=== PATIENT | female | born 1955 | race Caucasian/White ===

== ENCOUNTER 2019-06-03 20:24 | Inpatient (IN) | payer MEDICARE ==
[~2019-06-03] VITALS: Ht 165.1 cm; Wt 66.1 kg
--- NOTE | ~2019-06-03 | EC ---
PATIENT:ZURI PAYNE DATE OF SERVICE: 06/03/19 SEX: F MEDICAL RECORD: [id number] DATE OF : 55 LOCATION:D.M2 D.211 AGE OF PATIENT: 64 ADMISSION DATE: 06/03/19 REFERRING PHYSICIAN: INTERPRETING PHYSICIAN: JOSELIN MENDOZA MD ECHOCARDIOGRAM REPORT ECHO CHARGES 4 ECHO COMPLETE Date: 06/05/19 CLINICAL DIAGNOSIS: [place], ECHOCARDIOGRAPHIC MEASUREMENTS (adult normal given) AC root (d.<3.7cm) 3.0 cm LV Septum d (<1.2 cm> 1.0 cm Valve Excursion 1.2 cm LV Septum (systole) 1.5 cm Left Atria (s.<4.0cm> 3.7 cm LVPW d(<1.2cm) 1.1 cm RV (d.<2.3cm) 2.6 cm LVPW (sytole) 1.2 cm LV diastole(<5.6CM) 4.8 cm MV E-F(>70mm/sec) cm LV systole 3.9 cm LVOT Diameter 1.9 cm MV exc.(>10mm) cm Est.ejection fraction (50-75%) % DOPPLER: LVIT cm/sec A 93 cm/sec E 82 cm/sec LA cm/sec RVSP 34.3 mmHg LVOT 106 cm/sec AOP1/2T m/s Asc. Ao 133 cm/sec RVOT 67 cm/sec RA cm/sec PA 90 cm/sec AV Gradient Peak 7.0 mmHg AV Mean 4.0 mmHg AV Area 2.0 cm MV Gradient Peak 5.5 mmHg MV Mean 3.4 mmHg MV Area cm COMMENTS: Hog Grader: Lilly [facility] [place] [employer] Supervisor: 1 Dr. Mendoza TAPE# PACS Pericardial Effusion N DATE OF SERVICE: ECHOCARDIOGRAM FINDINGS: 1. Left ventricular chamber size is within normal limits. Left ventricular systolic function is normal. Overall ejection fraction estimated at 55% to 60%. 2. Left atrium, right atrium, and right ventricle chamber sizes are within normal limits. 3. Valvular structures have normal structure and motion. ECHOCARDIOGRAM REPORT [id number] ZURI PAYNE 4. Doppler interrogation reveals mild mitral regurgitation, mild tricuspid regurgitation, no other valvular insufficiency or stenosis. Pulmonary systolic pressure estimated at 34 mmHg. 5. No evidence of pericardial effusion or left ventricular thrombus. TRANSINT:[id number] Voice Confirmation ID: [id number] DOCUMENT ID: [id number] JOSELIN MENDOZA MD CC: [id number] DICTATION DATE: 06/06/19 1009 BOOT LACE CUTTER MACHINE: 06/06/19 1244 ADM IN [place] [id number] [place] [id number]
--- NOTE | ~2019-06-03 | CN ---
PATIENT NAME:ZURI FLORIAN MEDICAL RECORD: [id number] : 55 LOCATION:D.MS [place]4 ADMIT DATE: 06/03/19 ACCOUNT: [id number] CONSULTING PHYSICIAN: JOSELIN HAMMER MD REFERRING PHYSICIAN: EDUARD DAVILA MD DATE OF CONSULTATION: 06/04/2019 CARDIOLOGY CONSULTATION DIAGNOSES: 1. Angina. 2. Abnormal ECG. 3. Coronary artery disease. 4. Status post coronary artery bypass graft surgery. 5. Hypertension. 6. Hyperlipidemia. 7. Paroxysmal atrial fibrillation. 8. Shortness of breath, dyspnea on exertion, HISTORY OF PRESENT ILLNESS: Mrs. Florian presents with chest pain, shortness of breath and dyspnea on exertion. She has a history of coronary artery disease, coronary artery bypass graft surgery in 2005. Her EKG has ST depression in the lateral leads consistent with ongoing ischemia. She has a history of atrial fibrillation, but has not had any atrial fibrillation this admission. She is on propafenone as well as diltiazem, metoprolol. Her episodes of chest pain have progressed. Her shortness of breath and chest pain is at rest now. PHYSICAL EXAMINATION: CONSTITUTIONAL/GENERAL APPEARANCE: Well nourished, well developed, appears stated age. EYES: Lids and conjunctivae noninjected. No discharge. No pallor. ENT: Lips within normal limit. No cyanosis. No pallor. NECK: Carotid arteries, bilateral normal upstroke. No bruits. No thrills. No jugular venous pressure or distention. CERVICAL LYMPH NODES: Nontender. Nonenlarged. THYROID: Not enlarged. No nodules. CARDIOVASCULAR: Precordial exam, nondisplaced. No heaves or pericardial thrills. Rate and rhythm, regular. Heart sounds, normal S1, normal S2. No S3, no gallop, no rub. Systolic murmur, not heard. Diastolic murmur, not heard. RESPIRATORY: Respiratory effort, unlabored. Normal curvature. No thoracic deformity. No chest wall tenderness. Percussion, resonant. Auscultation, clear. No wheezes, no rales, no rhonchi. ABDOMEN: Soft, nondistended, nontender. No abdominal pain, no vomiting and normal appetite. MUSCULOSKELETAL: No joint tenderness, normal gait, normal tone. SKIN: Warm and dry. OVERALL IMPRESSION: Increasing unstable anginal symptomatology with episodes of rest pain, abnormal ECG and a past history of coronary artery disease with coronary artery bypass graft surgery 13 years ago, most likely she has recurrent hemodynamically significant coronary artery disease. We will proceed with coronary angiography. She does have an IODINE ALLERGY. We will premedicate for the IODINE ALLERGY. Proceed with coronary angiography in the a.m. TRANSINT:[id number] Voice Confirmation ID: [id number] DOCUMENT ID: [id number] CONSULT REPORT [id number] ZURI FLORIAN JEFFREY MD CC: [id number] DICTATION DATE: 06/04/19 1313 PILLAR MAN: 06/04/19 1359 ADM IN [facility] [address] [place] [id number]
--- NOTE | ~2019-06-03 | OP ---
PATIENT NAME: ZURI PAYNE MEDICAL RECORD: [id number] :55 LOCATION:D.M2 D.2118 ADMISSION DATE:06/03/19 SURGEON: JOSELIN HAMMER MD DATE OF OPERATION: 06/05/2019 PROCEDURES: 1. PTCA and stent to the RCA. 2. PTCA and stent to the LAD. 3. Left heart catheterization. 4. Selective coronary angiography. 5. BLAS angiography. 6. Vein graft angiography. 7. Left ventriculogram. INDICATIONS: Unstable angina and coronary artery disease. PROCEDURE IN DETAIL: After informed consent was obtained and after a detailed description of risks, benefits as well as alternative therapies, the patient elected to proceed with angiogram and angioplasty. The right femoral area was prepped and draped in normal sterile fashion. Right femoral artery was cannulated via modified Seldinger technique with placement of #6-Icelandic sheath. All catheters exchanged through this sheath. FINDINGS: The left ventriculogram was performed in standard 30-degree STEWARD view reveals preserved ejection fraction at 50%. SELECTIVE CORONARY ANGIOGRAPHY: 1. Left main is with no significant angiographic disease. 2. Left anterior descending has 95% stenosis in the mid vessel. 3. Left circumflex is closed in the mid vessel, has a chronic total occlusion. 4. The right coronary has a long area of 80% and 90% stenosis throughout the mid vessel. 5. BLAS to the LAD is closed. 6. Vein grafts are closed. PTCA AND STENT OF THE LAD: The stent used was a 2.5 x 18 mm Bentley. Result was 0% residual stenosis. PTCA AND STENT OF THE RCA: Stents used were 2.5 x 38 and 2.5 x 26, both Bentley stents. Result was 0% residual stenosis. OVERALL IMPRESSION: Successful PTCA and stent of the LAD and RCA, both going from 90% to 95% initial stenosis to 0% residual. TRANSINT:[id number] Voice Confirmation ID: [id number] DOCUMENT ID: [id number] OPERATIVE REPORT [id number] ZURI PAYNE JOSELIN ALVA MD CC: [id number] DICTATION DATE: 06/05/19 1633 COMPOSITE SCIENCE TEACHER: 06/05/19 2342 ADM IN [facility] [address] [place] [address]
--- NOTE | ~2019-06-03 | HEMODYNAMI ---
PATIENT:ZURI PAYNE MEDICAL RECORD: [id number] : 55 LOCATION:D.MS [facility]4 ADMISSION DATE: 06/03/19 Generatedon:06/05/201916:26 Patient name: ZURI PAYNE Patient #: [id number] SSN: : 1955 Date of study: 06/05/2019 Page: Of Hemodynamic Procedure Report Patient Data Patient Demographics Procedure consent was obtained First Name: ZURI Gender: Female Last Name: ELMER : 1955 [facility] Initial: ANGUS Age: 64 year(s) Patient #: [id number] Race: Unknown Additional ID: [id number] Contact details [address]: [address] [place] [address] State: [place] City: [place] Zip code: [address] Past Medical History Allergies Allergen Reaction Date Comments Reported Other allergy 06/05/2019 PCN, iodine Admission Admission Data Admission Date: 06/03/2019 Admission Time: 22:28 Room #: D.2204 Height (in.): 65 BSA: 1.74 (m2) Height (cm.): 165.1 BMI: 24.46 (kg/m2) Weight (lbs.): 147 Weight (kg.): 66.68 Lab Results Lab Result Date: 06/05/2019 Lab Result Time: 0:00 Biochemistry Name Units Result Min Max BUN mg/dl 7 --(*---)-- 7 18 Creatinine mg/dl 0.8 --(-*--)-- 0.6 1.3 eGFR ml/min 76.21409 *-(----)-- 90 120 NONAFRICAN CBC Name Units Result Min Max Hematocrit % 34.5 *-(----)-- 42 54 Hemoglobin g/dl 11.1 *-(----)-- 13.5 17.5 Procedure Procedure Types Cath Procedure Diagnostic Procedure LHC LHC w/Coronaries w/Grafts Sedation Charges Moderate Sedation up to 15 minutes PCI Procedure Coronary Stent Coronary Stent Initial Coronary Stent Initial x2 Procedure Description Procedure Date Procedure Date: 06/05/2019 Procedure Start Time: 16:01 Procedure End Time: 16:24 Procedure Staff Name Function Francisco Mendoza MD Performing Physician Daphne Hall RT Scrub Rose Mary Cherry RT Monitor Loren Rousseau RN Nurse Procedure Data Cath Procedure Fluoroscopy Diagnostic fluoroscopy Total fluoroscopy Time: 4.8 time: 4.8 min min Diagnostic fluoroscopy Total fluoroscopy dose: 275 dose: 275 mGy mGy Contrast Material Contrast Material Type Amount (ml) Isovue 370 134 Entry Location Entry Primary Successful Side Size Upsize Upsize Entry Closure Succes sful Closure Location (Fr) 1 (Fr) 2 (Fr) Remarks Device Remarks Femoral Right 5 Fr 6 Fr Exoseal artery Short Estimated blood loss: 10 ml Diagnostic catheters Device Type Used For End Catheter Placement MULTIPACK Pigtail 5 Fr Procedure catheter MULTIPACK JL 4.0 5Fr Procedure catheter MULTIPACK 3DRC 5Fr Procedure catheter Procedure Complications No complications Procedure Medications Medication Administration Route Dosage 0.9% NaCl I.V. 100 ml/hr Oxygen etCO2 Nasal cannula 2 l/min Lidocaine 2% added to field 20 Heparin Flush Bag added to field 2 bags (1000units/500ml NS) Versed I.V. 2 mg Fentanyl I.V. 100 mcg Heparin Bolus I.V. 4000 units Integrilin (Bolus I.V. 6.2 ml 2mg/ml) Integrilin (Bolus wasted 3.8 ml 2mg/ml) Plavix P.O. 600 mg Hemodynamics Rest BSA: 1.74 (m2) HGB: 11.1 (g/dl) O2 Consumption: Estimated: 170.35 (ml/min) O2 Co nsumption indexed: Estimated:97.9 (ml/min/m) Heart Rate: 81 (bpm) Snapshots Pre Cath Intra NCS Post Cath Vital Signs Time Heart Resp SPO2 etCO2 NIBP (mmHg) Rhythm Pain Sedation Rate (ipm) (%) (mmHg) Status Level (bpm) 15:56:48 73 21 96 24.7 170/95(139) NSR 0 (11) 10(A) , No pain 16:00:58 80 20 98 25.4 165/92(131) NSR 0 (11) 10(A) , No pain 16:05:08 95 17 96 26.2 165/98(132) NSR 0 (11) 9(A) , No pain 16:09:16 81 18 98 26.2 165/96(133) NSR 0 (11) 9(A) , No pain 16:13:30 80 18 96 27 159/85(128) NSR 0 (11) 9(A) , No pain 16:17:39 81 19 98 26.9 162/95(134) NSR 0 (11) 10(A) , No pain 16:22:39 82 17 95 12 Measuring NSR 0 (11) 10(A) , No pain 16:22:41 82 17 95 22.5 183/113(154) NSR 0 (11) 10(A) , No pain Medications Time Medication Route Dose Verified Delivered Reason Notes Effectiveness by by 15:55:56 0.9% NaCl I.V. 100 Francisco Loren used for ml/hr Reji Rousseau pickup driver 15:56:03 Oxygen etCO2 2 Francisco Loren used for Nasal l/min Reji Rousseau procedure cannula RN 15:56:09 Lidocaine 2% added 20ml Francisco Singh for local to vial Reji Mendoza MD anesthetic field 15:56:13 Heparin Flush added 2 Francisco Francisco used for Bag to bags Reji Mendoza MD procedure (1000units/500ml field NS) 15:58:12 Versed I.V. 2 mg Francisco Loren for sedation Reji Rousseau RN 15:58:34 Fentanyl I.V. 100 Francisco Loren for sedation mcg Reji Rousseau RN 16:09:13 Heparin Bolus I.V. 4000 Francisco Paganyla for verif ied units Reji Rousseau anticoagulation with Dr. SABRINA Mendoza 16:09:24 Integrilin I.V. 6.2 Francisco Loren for (Bolus 2mg/ml) ml Reji Rousseau antiplatelet RN therapy 16:09:41 Integrilin wasted 3.8 Francisco Loren for (Bolus 2mg/ml) ml Reji Rousseau antiplatelet RN therapy 16:09:51 Plavix P.O. 600 Francisco Loren for mg Reji Rousseau antiplatelet RN therapy Procedure Log Time Note 14:48:16 Patient allergic to Other allergyPCN, iodine 15:19:46 Procedure Status Urgent Heart Cath (IP). 15:19:47 Time tracking: Regular hours (M-F 7:00 - 5:00) 15:19:50 Plan of Care:Hemodynamics will remain stable., Cardiac rhythm will remain stable., Comfort level will be maintained., Respiratory function will remain adequate., Patient/ family verbilizes understanding of procedure., Procedure tolerated without complication., Recovers from procedure without complications.. 15:19:52 Rose Mary Cherry RT(R) sent for patient. Start room use. 15:19:54 Signed procedure consent form obtained from patient. 15:24:26 H&P Date Dictated: 06/05/2019 New H&P dictated by physician.. 15:44:10 Patient received from Med/Surg to CCL 3 Alert and oriented. Tansferred to table in Supine position. 15:44:11 Warm blankets applied, and toby hugger turned on for patient comfort. 15:44:12 Correct patient and procedure confirmed by team. 15:44:13 ECG and BP/O2 sat monitors applied to patient. 15:44:16 Pre-procedure instructions explained to patient. 15:44:17 Pre-op teaching completed and patient verbalized understanding. 15:44:19 Family in waiting room. 15:44:22 Patient NPO since Breakfast. 15:44:24 Is the patient allergic to Iodine/contrast media? No. 15:44:29 Was the patient premedicated? Yes 15:44:31 Is patient on blood thinner?Yes 15:44:35 ACC The patient was administered the following blood thiners within the last 24 hours: Eliquis 15:44:38 Patient diabetic? No. 15:44:40 Patient not . Patient is over age 55. 15:44:41 ----Pre-sedation anethsthesia assessment.---- 15:44:46 Previous problem with sedation/anesthesia? No ? 15:44:47 Snore? Yes 15:44:51 Sleep apnea? No 15:44:52 Deviated septum? No 15:44:53 Opens mouth fully? Yes 15:44:54 Sticks out tongue? Yes 15:44:58 Airway obstruction? Yes copd 15:45:01 Dentures? No ? 15:45:23 Alarms reviewed by R. N. 15:45:24 Sharps counted by scrub and verified by R.N. 15:45:28 Lab results completed and on chart. 15:45:33 Stress Test: no; N/A ? 15:46:17 Patient Height : 65 inches 15:46:27 Patient Weight : 147 lbs 15:55:47 Vital chart was started 15:55:56 0.9% NaCl 100 ml/hr I.V. was administered by Loren Rousseau RN; used for procedure; Verbal order read back and verified. 15:56:03 Oxygen 2 l/min etCO2 Nasal cannula was administered by Loren Rousseau RN; used for procedure; Verbal order read back and verified. 15:56:05 Risk of Mortality: 0.1 15:56:08 Risk of blood transfusion: 1.8 15:56:09 Lidocaine 2% 20ml vial added to field was administered by Francisco Mendoza MD; for local anesthetic; Verbal order read back and verified. 15:56:10 Risk of GONZALO: 0.4 15:56:13 Heparin Flush Bag (1000units/500ml NS) 2 bags added to field was administered by Francisco Mendoza MD; used for procedure; Verbal order read back and verified. 15:56:14 Right groin area was prepped with chlora-prep and draped in sterile fashion 15:56:25 IV patent on arrival in right forearm with 0.9% NaCl at [facility]. 15:56:54 Lab Result : BUN 7 mg/dl 15:56:54 Lab Result : Creatinine 0.8 mg/dl 15:56:54 Lab Result : eGFR NONAFRICAN 76.92438 ml/min 15:56:54 Lab Result : Hemoglobin 11.1 g/dl 15:56:54 Lab Result : Hematocrit 34.5 % 15:56:59 Pre procedure: right dorsailis pedis pulse 2+ Normal; easily identifiable; not easily obliterated 15:57:02 Patient pain scale 0/10 ?. 15:57:12 Baseline sample Acquired. 15:57:13 Full Disclosure recording started 15:57:21 Rhythm: sinus rhythm 15:57:27 Use device set Femoral Dx 15:57:28 ACIST Syringe (50410) opened to sterile field. 15:57:29 Bag Decanter () opened to sterile field. 15:57:30 Medline Cath Pack ([id number]) opened to sterile field. 15:57:31 ACIST Hand Control (98113) opened to sterile field. 15:57:32 ACIST Manifold (61464) opened to sterile field. 15:57:34 DIAGNOSTIC Multipack 5Fr catheter set ([id number]) opened to sterile field. 15:57:36 EMERALD Guide Wire (802-276) opened to sterile field. 15:57:37 SHEATH 5FR [place] (HLN378) opened to sterile field. 15:57:54 --------ALL STOP TIME OUT------ 15:57:55 Final Timeout: patient, procedure, and site verified with staff and physician. All members of the team are in agreement. 15:57:58 Right groin site verified by team. 15:58:02 Fire Safety Assessment: A--An alcohol-based skin anteseptic being used preoperatively., C--Open oxygen or nitrous oxide is being used., D--An ESU, laser, or fiber-optic light is being used. 15:58:05 Physical assessment completed. ASA score P 2 - A patient with mild systemic disease as per Francisco Mendoza MD. 15:58:08 2) 60-89 Mildly reduced kidney function, and other findings (as for stage 1) point to kidney disease. 15:58:12 Versed 2 mg I.V. was administered by Loren Rousseau RN; for sedation; Verbal order read back and verified. 15:58:13 Maximum allowable contrast dose (3.7 X eGFR X 0.75)210 ml. 15:58:17 Sedation plan: IV Moderate Sedation Medication:Versed, Fentanyl 15:58:34 Fentanyl 100 mcg I.V. was administered by Loren Rousseau RN; for sedation; Verbal order read back and verified. 16:01:13 Procedure started. 16:01:41 Local anesthetic to right femoral artery with Lidocaine 2% by Francisco Mendoza MD.INITIAL ACCESS ONLY 16:02:19 A 5 Fr sheath was inserted into the Right Femoral artery 16:02:26 A MULTIPACK Pigtail 5 Fr catheter was advanced over the wire and used for Procedure. 16:03:22 Injector settings: Ml/sec: 10, Volume: 20, 16:03:25 LV gram done using STEWARD 16:03:45 EF : 50 % 16:03:46 Catheter removed. 16:04:29 A MULTIPACK JL 4.0 5Fr catheter was advanced over the wire and used for Procedure. 16:04:31 LCA angiography performed. 16:05:19 Catheter removed. 16:05:24 A MULTIPACK 3DRC 5Fr catheter was advanced over the wire and used for Procedure. 16:06:29 BLAS to LAD angiography performed. 16:07:10 RCA angiography performed. 16:07:51 Catheter removed. 16:07:59 Proceeding to intervention. 16:08:13 Sheath upsized to a 6 Fr Short. 16:08:17 SHEATH 6FR [place] (NXB119) opened to sterile field. 16:08:53 GUIDE 6FR XBLAD 4.0 catheter ([id number]) opened to sterile field. 16:09:08 6 Fr xblad 4 guide catheter was inserted over the wire 16::13 Heparin Bolus 4000 units I.V. was administered by Loren Rousseau RN; for anticoagulation; verified with Dr. Mendoza Verbal order read back and verified. 16:09:24 Integrilin (Bolus 2mg/ml) 6.2 ml I.V. was administered by Loren Rousseau RN; for antiplatelet therapy; Verbal order read back and verified. 16:09:41 Integrilin (Bolus 2mg/ml) 3.8 ml wasted was administered by Loren Rousseau RN; for antiplatelet therapy; Verbal order read back and verified. 16:09:51 Plavix 600 mg P.O. was administered by Loren Rousseau RN; for antiplatelet therapy; Verbal order read back and verified. 16:10:25 INFLATOR Merit BasixCompak (ZB5035) opened to sterile field. 16:10:38 CHOICE PT Extra Support 182cm wire ([id number]) opened to sterile field. 16:10:55 choice es 182 wire advanced. 16:12:08 Wire advanced across lesion. 16:12:10 Pre PCI Site: [place] mLAD has 90% stenosis. 16:12:53 Place stent Inflation Number: 1 A JIMENA RX 2.5 x 18 stent ([id number]) was prepped and advanced across the Mid LAD . The stent was deployed at 21 COY for 0:00 (min:sec) . 16:12:57 Inflation number: 2 The stent balloon was then re-inflated across the Mid LAD to 23 COY for 0:00 (min:sec) . 16:13:02 Stent catheter was removed intact over wire. 16:13:05 Guide catheter removed. 16:13:06 Wire removed. 16:13:12 GUIDE 6FR AR 2.0 catheter ([id number]) opened to sterile field. 16:13:19 6 Fr AR 2 guide catheter was inserted over the wire 16:14:17 CHOICE ES 182 wire advanced. 16:14:43 Pre PCI Site: [place] mRCA has 90% stenosis. 16:15:35 Place stent Inflation Number: 1 A JIMENA RX 2.5 x 38 stent ([id number]) was prepped and advanced across the Mid RCA . The stent was deployed at 15 COY for 0:00 (min:sec) . 16:16:37 Stent catheter was removed intact over wire. 16:16:39 Wire removed. 16:16:49 Wire redirected to ?. 16:17:18 Place stent Inflation Number: 2 A JIMENA RX 2.5 x 26 stent ([id number]) was prepped and advanced across the Mid RCA . The stent was deployed at 17 COY for 0:00 (min:sec) . 16:17:26 Inflation number: 3 The stent balloon was then re-inflated across the Mid RCA to 0 COY for 0:00 (min:sec) . 16:17:41 EXOSEAL 6Fr (EX600) opened to sterile field. 16:17:50 Stent catheter was removed intact over wire. 16:17:52 Wire removed. 16:17:52 Guide catheter removed. 16:18:07 Sheath removed intact; hemostasis achieved with Exoseal to the Right Femoral artery. 16:19:14 Procedure ended.(Physican Out) 16:19:31 Fluoroscopy time 04.80 minutes. 16:19:36 Flurop Dose total: 275 16:19:36 Fluoroscopy dose: 275 mGy 16:19:48 Dose Area Product 1763.8 mGy/cm. 16:19:53 Contrast amount:Isovue 370 134ml. 16:19:57 Maximum allowable dose exceeded? No. 16:19:59 Sharps counted by scrub and verified by R.N. 16:20:04 Post-op/insertion site Right Femoral artery dressed using a 4 x 4 and Tegaderm. 16:20:09 Post right femoral artery:stable, soft, clean and dry 16:20:11 Post Procedure Pulses reassessed and unchanged 16:20:14 Post procedure: right dorsailis pedis pulse 2+ Normal; easily identifiable; not easily obliterated. 16:20:18 Post-procedure physical assessment completed. ASA score P 2 - A patient with mild systemic disease as per Francisco Mendoza MD. 16:20:21 ACT drawn and resulted at 302 seconds. (normal therapeutic range 180-240 seconds). 16:20:21 Post procedure rhythm: unchanged. 16:20:31 Estimated blood loss: 10 ml 16:20:34 Post procedure instruction explained to patient.Patient verbalizes understanding. 16:20:35 Patient needs reinforcement of post procedure teaching. 16:23:11 Procedure type changed to Cath procedure, Diagnostic procedure, LHC, LHC w/Coronaries w/Grafts, Sedation Charges, Moderate Sedation up to 15 minutes, PCI procedure, Coronary Stent, Coronary Stent Initial, Coronary Stent Initial x2 16:24:34 Procedure Complication : No complications 16:24:37 Vital chart was stopped 16:24:41 [facility] Findings: MVD- PCI performed (see procedure note) 16:24:45 Operative report dictated upon procedure completion. 16:24:45 See physician's report for complete and final results. 16:24:51 Report given to [facility]. 16:24:55 Patient transfered to [facility] with Bed. 16:24:57 Procedure ended. 16:24:57 Full Disclosure recording stopped Intervention Summary Intervention Notes Time ActionType Lesion and Equipment Used Action# Pressure Duration Attributes 16:12:53 Place stent Mid LAD JIMENA RX 2.5 x 1 21 00:00 18 stent ([id number]) 16:12:57 Reinflate Mid LAD JIMENA RX 2.5 x 2 23 00:00 stent 18 stent balloon ([id number]) 16:15:35 Place stent Mid RCA JIMENA RX 2.5 x 1 15 00:00 38 stent ([id number]) 16:17:18 Place stent Mid RCA JIMENA RX 2.5 x 2 17 00:00 26 stent ([id number]) 16:17:26 Reinflate Mid RCA JIMENA RX 2.5 x 3 0 00:00 stent 26 stent balloon ([id number]) Device Usage Item Name Manufacture Quantity Catalog Number Hospital Part Current M inimal Lot# / Charge Number Stock Stock Serial# Code ACIST Syringe Acist 1 63308 020943 442067 342702 2 0 (51082) Medical Systems Inc Bag Decanter Microtek 1 264036 75912 882301 5 () Medical Inc. Medline Cath Medline 1 [id number] 727598 14093 001172 5 Pack ([id number]) ACIST Hand Acist 1 55539 042135 775485 753972 5 Control Medical (54828) Systems Inc ACIST Manifold Acist 1 28192 650621 889135 153164 5 (75419) Medical Systems Inc DIAGNOSTIC Cardinal 1 GA8385 487081 89789 854113 3 0 Multipack 5Fr Health catheter set ([id number]) EMERALD Guide Cardinal 1 502-455 488951 272676 135541 5 Wire (502-455) Health SHEATH 5FR Terumo 1 SZE988 902760 199029 659851 5 [place] (KPY213) MULTIPACK Cardinal 1 653137 5 Pigtail 5 Fr Health catheter MULTIPACK JL Cardinal 1 559035 5 4.0 5Fr Health catheter MULTIPACK 3DRC Cardinal 1 894855 5 5Fr catheter Health SHEATH 6FR Terumo 1 XQZ716 867964 961704 395276 4 0 [place] (BNI178) GUIDE 6FR Cardinal 1 37428959 215799 196950 191676 3 XBLAD 4.0 Health catheter (27703328) INFLATOR Merit Merit 1 GB6715 091948 784307 674579 1 5 [facility]Dex[facility] HospitalMicromax Informatics [facility] (WR3401) CHOICE PT [place] 1 [id number] 094869 399979 746044 5 Extra Support Scientific 182cm wire ([id number]) JIMENA RX 2.5 x Medtronic 1 [id number] 408254 4914727 818582 5 [id number] 18 stent ([id number]) GUIDE 6FR AR Medtronic 1 SD4UI20 052100 19168 209245 1 2.0 catheter (GV1XR43) JIMENA RX 2.5 x Medtronic 1 [id number] 842558 1786307 503906 5 [id number] 38 stent ([id number]) JIMENA RX 2.5 x Medtronic 1 [id number] 356338 6780018 505259 5 [id number] 26 stent ([id number]) EXOSEAL 6Fr Cardinal 1 EX600 358069 746154 639971 1 0 (EX600) Health Signature Audit [place] Stage Time Signature Unsigned Intra-Procedure 06/05/2019 Rose Mary Cherry 4:25:18 PM RT(R) Intra-Procedure 06/05/2019 Loren Rousseau 4:26:06 PM RN Intra-Procedure 06/05/2019 Francisco Mendoza 4:26:[address] [address]
[2019-06-03] MEDS ORDERED: TOPROL XL50 MG PO (20:36)
[2019-06-03] MEDS ORDERED: PROTONIX40 MG PO (20:36)
[2019-06-03] MEDS ORDERED: LEVOXYL50 MCG PO (20:36)
[2019-06-03] MEDS ORDERED: METHOCARBAMOL750 MG PO (20:36)
[2019-06-03] MEDS ORDERED: DILTIAZEM 24HR360 M4 PO (20:37)
[2019-06-03] MEDS ORDERED: PROPAFENONE HC150 MG PO (20:37)
[2019-06-03] MEDS ORDERED: ELIQUIS5 MG PO (20:37)
[2019-06-03] MEDS ORDERED: ARAVA10 MG PO (20:37)
[2019-06-03] MEDS ORDERED: XELJANZ5 MG PO (20:38)
[2019-06-03] MEDS ORDERED: BUMETANIDE0.5 MG PO (20:38)
[2019-06-03] MEDS ORDERED: LIPITOR20 MG PO (20:39)
[2019-06-03 21:20] LABS: BASOPHILS 0.2 % (0-2); EOSINOPHILS 1.3 % (0-7); HEMATOCRIT 35.4 % (36.0-48.0); HEMOGLOBIN 11.7 g/dL (12-16); IMMATURE GRANULOCYTES 0.2 % (0-5); LYMPHOCYTES 23.5 % (15-50); MCH 25.8 pg (26.0-34.0); MCHC 33.1 g/dL (31.0-37.0); MCV 78.1 fL (80.0-100.0); MEAN PLATELET VOLUME 9.7 fL (7.4-10.4); NEUTROPHILS 64.8 % (40-80); PLATELET COUNT 359 10x3/uL (130-400); RBC 4.53 10x6/uL (4.00-5.40); RDW 16.6 % (11.5-14.5); WBC 10.8 10x3/uL (4.8-10.8)
[2019-06-03 21:23] LABS: INR 1.25 (0.85-1.17); PROTIME 15.2 SECONDS (11.6-15.0)
[2019-06-03 21:24] LABS: APPEARANCE CLEAR (CLEAR); BILIRUBIN NEGATIVE (NEGATIVE); COLOR YELLOW (YELLOW); GLUCOSE NEGATIVE (NEGATIVE); KETONE NEGATIVE (NEGATIVE); NITRITE NEGATIVE (NEGATIVE); PROTEIN NEGATIVE (NEGATIVE); UROBILINOGEN NORMAL (NORMAL)
[2019-06-03 21:24] LABS: CALC OSMOLALITY 253 mosm/kg (275-300); CALCIUM 8.9 mg/dL (8.5-10.1); CARBON DIOXIDE 21.5 mmol/L (21.0-32.0); CHLORIDE - SERUM 94 mmol/L (98-107); CREATININE - SERUM 0.9 mg/dL (0.6-1.3); GLUCOSE 100 mg/dL (74-106); POTASSIUM - SERUM 4.1 mmol/L (3.5-5.1); SODIUM 127 mmol/L (136-145); UREA NITROGEN 10 mg/dL (7-18); eGFR NON AFRICAN AMERICAN 67 mL/min (90-120)
[2019-06-03 21:41] LABS: ALBUMIN 2.8 g/dL (3.4-5.0); ALKALINE PHOSPHATASE 115 U/L (46-116); ALT (SGPT) 11 U/L (10-68); BILIRUBIN - TOTAL 0.39 mg/dL (0.2-1.3); CKMB 0.1 U/L (0.0-3.6); CREATINE KINASE 32 UL (21-215); MAGNESIUM - SERUM 1.9 mg/dL (1.8-2.4); PRO BNP 2726 pg/mL (0-125); PROTEIN - SERUM 7.7 g/dL (6.4-8.2); TROPONIN-I < 0.017 ng/mL (0.000-0.060)
[2019-06-03 22:20] VITALS: BP 111/84
--- NOTE | 2019-06-03 22:30 | NUR ---
PT SITTING ON BED. NO S/S OF ACUTE DISTRESS NOTED.
--- NOTE | 2019-06-03 23:38 | NUR ---
RECEIVED TO ROOM FROM ER VIA WHEELCHAIR. ALERT,ORIENTED. NO DISTRESS NOTED. RESP UNALBORED. O2 @ 2L PER NC ON. SL TO RAC INTACT WITHOUT REDNESS OR EDEMA NOTED. ORIENTED TO ROOM. CL IN REACH
[2019-06-03] MEDS ORDERED: FLUTICASONE PRO16 GM NASAL (23:54)
[2019-06-04] VITALS (7 sets, daily range): BP systolic 119–166; BP diastolic 72–97; Ht 165.1 cm; Wt 66.1 kg
--- NOTE | 2019-06-04 08:17 | NUR ---
RESTING IN BED, O2 PER NC AT 2L, FAMILY IN ROOM, TELE IN PLACE, CONT TO MONITOR RESP STATUS AND TELE
--- NOTE | 2019-06-04 13:13 | NUR ---
1200 ARRIVED TO UNIT PER STRETCHER, IV INFUSING PER RFA, NO DISTRESS NOTED, WILL OBTAIN STOOL SPECIMEN, PT HAS SOME CONFUSION ABOUT MEDS AND TIMES TAKEN
--- NOTE | 2019-06-05 02:39 | NUR ---
I have reviewed this patient and I concur with the Shift Assessment completed by the Licensed Practical Nurse today this shift.
[2019-06-05 05:01] VITALS: BP 128/86
[2019-06-05 05:27] LABS: BASOPHILS 0 % (0-2); EOSINOPHILS 0.1 % (0-7); HEMATOCRIT 34.5 % (36.0-48.0); HEMOGLOBIN 11.1 g/dL (12-16); IMMATURE GRANULOCYTES 0.3 % (0-5); LYMPHOCYTES 9.6 % (15-50); MCH 25.4 pg (26.0-34.0); MCHC 32.2 g/dL (31.0-37.0); MCV 78.9 fL (80.0-100.0); MEAN PLATELET VOLUME 9.7 fL (7.4-10.4); MONOCYTES 8.2 % (2-11); NEUTROPHILS 81.8 % (40-80); PLATELET COUNT 396 10x3/uL (130-400); RBC 4.37 10x6/uL (4.00-5.40); RDW 16.9 % (11.5-14.5)
[2019-06-05 05:59] LABS: WBC 6.8 10x3/uL (4.8-10.8)
[2019-06-05 06:15] LABS: CALCIUM 8.7 mg/dL (8.5-10.1); CARBON DIOXIDE 23.8 mmol/L (21.0-32.0); CHLORIDE - SERUM 103 mmol/L (98-107); CREATININE - SERUM 0.8 mg/dL (0.6-1.3); MAGNESIUM - SERUM 2.1 mg/dL (1.8-2.4); POTASSIUM - SERUM 3.8 mmol/L (3.5-5.1); SODIUM 137 mmol/L (136-145); eGFR NON AFRICAN AMERICAN 76 mL/min (90-120)
[2019-06-05 06:18] LABS: CALC OSMOLALITY 274 mosm/kg (275-300); GLUCOSE 156 mg/dL (74-106); UREA NITROGEN 7 mg/dL (7-18)
[2019-06-05 08:05] VITALS: BP 168/97
--- NOTE | 2019-06-05 08:34 | NUR ---
FAMILY IN ROOM. CL IN REACH. CONTINUOUS PROCESS TANNER ROTARY DRUM REAPPLIED. WCTM
[2019-06-05 12:45] VITALS: BP 181/92
[2019-06-05 12:57] VITALS: BP 146/80
--- NOTE | 2019-06-05 13:35 | NUR ---
FAMILY IN ROOM. WAITING ON PROCEDURE. CL IN REACH. NO NEEDS AT THIS TIME. WCTM
[2019-06-05 16:17] VITALS: BP 180/120; BP 182/110
--- NOTE | 2019-06-05 17:02 | NUR ---
RECIEVED FROM BLOW MACHINE TENDER STARCH SPRAYING BY BED FROM MS. RIGHT GROIN STABLE WITHOUT BLEEDING OR HEMATOMA NOTED. WILL MONITOR.
--- NOTE | 2019-06-05 19:39 | NUR ---
RECEIVED BEDSIDE REPORT. PATIENT IS ALERT AND ORIENTED, RESTING COMFORTABLY IN BED. RESPIRATIONS ARE EVEN AND UNLABORED. NO S/S OF DISTRESS. NO C/OPAIN. CALL LIGHT WITHIN REACH. WILL CPOC.
[2019-06-05 20:00] VITALS: BP 139/81
--- NOTE | 2019-06-06 00:25 | NUR ---
PATIENT APPEARS TO BE SLEEPING. RESPIRATIONS ARE EVEN AND UNLABORED. NO S/S OF DISTRESS. CALL LIGHT WITHIN REACH. FAMILY AT BEDSIDE. WILL CPOC.
[2019-06-06 00:33] VITALS: BP 142/80
--- NOTE | 2019-06-06 03:48 | NUR ---
PATIENT APPEARS TO BE SLEEPING. RESPIRATIONS ARE EVEN AND UNLABORED. NO S/S OF DISTRESS. CALL LIGHT WITHIN REACH. WILL CPOC.
[2019-06-06 04:00] VITALS: BP 151/86
[2019-06-06 06:55] LABS: ANION GAP 14.5 mmol/L (8-16); CALCIUM 8.6 mg/dL (8.5-10.1); CARBON DIOXIDE 27.5 mmol/L (21.0-32.0); MAGNESIUM - SERUM 1.9 mg/dL (1.8-2.4)
[2019-06-06 06:59] LABS: BASOPHILS 0.1 % (0-2); EOSINOPHILS 0.2 % (0-7); HEMATOCRIT 32.5 % (36.0-48.0); HEMOGLOBIN 10.3 g/dL (12-16); IMMATURE GRANULOCYTES 0.3 % (0-5); LYMPHOCYTES 17.8 % (15-50); MCH 25.2 pg (26.0-34.0); MCHC 31.7 g/dL (31.0-37.0); MCV 79.7 fL (80.0-100.0); MEAN PLATELET VOLUME 9.4 fL (7.4-10.4); MONOCYTES 9.8 % (2-11); NEUTROPHILS 71.8 % (40-80); PLATELET COUNT 420 10x3/uL (130-400); RBC 4.08 10x6/uL (4.00-5.40)
[2019-06-06 07:00] LABS: WBC 9.5 10x3/uL (4.8-10.8)
[2019-06-06 08:17] VITALS: BP 149/95
[2019-06-06 12:00] VITALS: BP 134/87
[2019-06-06 14:48] VITALS: BP 158/110
[2019-06-06] MEDS ORDERED: FLORAJEN3 CAPS460 MG PO (15:14)
[2019-06-06] MEDS ORDERED: PLAVIX75 MG PO (15:14)
[2019-06-06] MEDS ORDERED: NICODERM C1 PATCH .1 TRANSDERM (15:15)
[2019-06-06] MEDS ORDERED: ZITHROMAX250 MG PO (15:15)
[2019-06-06] MEDS ORDERED: IPRAT-ALBUT 0.5-3 ML INH (15:15)
[2019-06-06] MEDS ORDERED: OMNICEF300 MG PO (15:18)
--- NOTE | 2019-06-06 16:08 | MORECARE ---
CASE MANAGEMENT DISCHARGE SUMMARY PATIENT: ZURI PAYNE ANN UNIT: [id number] ADM DATE: 06/03/19 AGE: 64 : 55 SEX: F ROOM/BED: D.8568 AUTHOR: PADDYDOC PHYSICIAN: REFERRING PHYSICIAN: EDUARD DAVILA MD DATE OF SERVICE: 06/06/19 Discharge Plan Patient Name: ZURI PAYNE Facility: [facility]:[place] : 1955 Planned Disposition: Home Anticipated Discharge Date: 06/06/19 Discharge Date: Expected LOS: 3 Initial Reviewer: [email or web address] Initial Review Date: 06/06/2019 Generated: 06/06/19 5:07 pm DCPIA - Discharge Planning Initial Assessment Updated by EFREN: Pradip Espinal on 06/06/19 4:05 pm * Is the patient Alert and Oriented? Yes * How many steps to enter\exit or inside your home? * [facility] * Pharmacy [facility] * Preadmission Environment Home Alone * ADLs Independent * Equipment Nebulizer Oxygen * Other Equipment HOME OXYGEN [facility] [place] - PROVIDER * List name and contact numbers for known caregivers / representatives who currently or will assist patient after discharge: BRODY PALACIOSCE, DTR, * Verbal permission to speak to the caregivers and representatives has been obtained from the patient. Yes * Community resources currently utilized None * Please name any agencies selected above. NONE * Additional services required to return to the preadmission environment? No * Can the patient safely return to the preadmission environment? Yes * Has this patient been hospitalized within the prior 30 days at any hospital? No External Providers [facility] Next Contact Date: 06/06/2019 Service Request Date: Service Type: Resolution: Reviewer: Comments: Coverage Notice Reviewer: [email or web address] - Pradip Espinal Notice Issued Date-Time: 06/06/2019 15:30 Notice Type: Patient Choice Letter Notice Delivered To: Patient Relationship to Patient: Lead Cashier Name: Delivery Method: HAND - Hand Delivered Barbi Days: Prior Verbal Notification: Recipient Understood Notice: Yes Recipient Signature: Yes Med Rec Note Co-signed by Attending: Coverage Notice Comment: YULISSA Patient Name: ZURI PAYNE Page [phone] at 1608 All edits/amendments must be made on the electronic document DICTATION DATE: 06/06/191606 [employer] TE[employer]ER LIBRARIAN: DELIA 06/06/191606 RPT#: [id number] DC DATE: STATUS: ADM IN [facility] [address] [place] [address] END OF REPORT
--- NOTE | 2019-06-06 16:16 | MORECARE ---
CASE MANAGEMENT DISCHARGE SUMMARY PATIENT: ZURI PAYNE ANN UNIT: [id number] ADM DATE: 06/03/19 AGE: 64 : 55 SEX: F ROOM/BED: D.0365 AUTHOR: PADDY,DOC PHYSICIAN: REFERRING PHYSICIAN: EDUARD DAVILA MD DATE OF SERVICE: 06/06/19 Discharge Plan Patient Name: ZURI PAYNE Facility: [facility]:[place] : 1955 Planned Disposition: Home Anticipated Discharge Date: 06/06/19 Discharge Date: Expected LOS: 3 Initial Reviewer: [email or web address] Initial Review Date: 06/06/2019 Generated: 06/06/19 5:16 pm Comments DCP- Discharge Planning Updated by [email or web address]: Pradip Espinal on 06/06/19 3:[address] Patient Name: ZURI PAYNE Admission Status: ER Accout number: [id number] Admission Date: 06-03-2019 : 1955 Admission Diagnosis: Attending: EDUARD DAVILA Current LOS: 3 Anticipated DC Date: 06-06-2019 Planned Disposition: Home Primary Insurance: [facility] MEDICARE SOLUTIONS Discharge Planning Comments: CM MET WITH PT IN ROOM TO DISCUSS DISCHARGE PLANNING AND NEEDS. PT REPORTS LIVING AT HOME INDEPENDENTLY AND ALONE. PT HAS OXYGEN THAT SHE DOES NOT USE AND NEBLUIZER THAT HAS BEEN "BURING UP FOR ABOUT A YEAR". PT GOT THE NEBULIZER FROM [facility] IN 2004. PT WOULD LIKE A NEW ONE FROM [facility]. CHOICE SIGNED. PT HAS NO OUTSIDE SERVICES ASSISTING IN THE HOME. CM DISCUSSED AVAILABILITY OF HOME HEALTH, REHAB SERVICES AND MEDICAL EQUIPMENT. PT DENIES DISCHARGE NEEDS OTHER THAN OTHER THAN NEBULIZER. PT REPORTS HER DAUGHTER WILL PICK HER UP FOR DISCHARGE HOME. CM RECEIVED ORDER FOR NEBULIZER. CM CALLED [facility], , SPOKE TO CRYSTAL TOOK NEBULIZER ORDER. CM FAXED NEBULIZER ORDERS TO [facility] AT [phone]. [facility] TO ARRANGE NEBULIZER DELIVERY TO HOPITAL ROOM TODAY FOR DISCHARGE HOME. CM NOTIFIED PT AND BEDSIDE NURSE. Air Carrier Operations Inspector: Pradip Espinal DCPIA - Discharge Planning Initial Assessment Updated by [email or web address]: Pradip Espinal on 06/06/19 4:05 pm * Is the patient Alert and Oriented? Yes * How many steps to enter\\exit or inside your home? * PCP [facility] * Pharmacy [facility] * Preadmission Environment Home Alone * ADLs Independent * Equipment Nebulizer Oxygen * Other Equipment HOME OXYGEN YULISSA - PROVIDER * List name and contact numbers for known caregivers / representatives who currently or will assist patient after discharge: BRODY PALACIOSCE, DTR, * Verbal permission to speak to the caregivers and representatives has been obtained from the patient. Yes * Community resources currently utilized None * Please name any agencies selected above. NONE * Additional services required to return to the preadmission environment? No * Can the patient safely return to the preadmission environment? Yes * Has this patient been hospitalized within the prior 30 days at any hospital? No Coverage Notice Reviewer: [id number] Maribell Espinal Notice Issued Date-Time: 06/06/2019 15:30 Notice Type: Patient Choice Letter Notice Delivered To: Patient Relationship to Patient: Asset Management Analyst Name: Delivery Method: HAND - Hand Delivered Barbi Days: Prior Verbal Notification: Recipient Understood Notice: Yes Recipient Signature: Yes Med Rec Note Co-signed by Attending: Coverage Notice Comment: YULISSA Zhang DP export: 06/06/19 3:08 Patient Name: ZURI PAYNE Page [phone] at 1616 All edits/amendments must be made on the electronic document DICTATION DATE: 06/06/191615 TECHNOLOGY ADOPTION MANAGER: DELIA 06/06/191615 RPT#: [id number] DC DATE: STATUS: ADM IN [facility] [address] [place] [address] END OF REPORT
--- NOTE | 2019-06-06 17:16 | NUR ---
IV AND TELEMETRY DCD. DC PLANS GIVEN. UNDERSTANDING VOICED. ESCORTED TO CAR BY W/C.
== END 2019-06-06 17:24 | disposition home or self-care (01) | DRG 246 ==
LOC: D.ER 20:24 → D.MS 22:28 → D.M2 06-05 16:37
PROVIDERS: Family Medicine; Internal Medicine Interventional Cardiology; ADMIT Internal Medicine Nephrology; ATTEND Internal Medicine Nephrology
PROC: B2111ZZ Fluoroscopy of Multiple Coronary Arteries using Low Osmolar Contrast (ICD-10-PCS; 2019-06-05)
PROC: B2151ZZ Fluoroscopy of Left Heart using Low Osmolar Contrast (ICD-10-PCS; 2019-06-05)
PROC: B2121ZZ Fluoroscopy of Single Coronary Artery Bypass Graft using Low Osmolar Contrast (ICD-10-PCS; 2019-06-05)
PROC: B2181ZZ Fluoroscopy of Left Internal Mammary Bypass Graft using Low Osmolar Contrast (ICD-10-PCS; 2019-06-05)
PROC: 027136Z Dilation of Coronary Artery, Two Arteries with Three Drug-eluting Intraluminal Devices, Percutaneous Approach (ICD-10-PCS; principal; 2019-06-05 15:20)
PROC: 4A023N7 Measurement of Cardiac Sampling and Pressure, Left Heart, Percutaneous Approach (ICD-10-PCS; 2019-06-05 15:20)
DX: I25.110 Atherosclerotic heart disease of native coronary artery with unstable angina pectoris (principal); J18.9 Pneumonia, unspecified organism; I48.20 Chronic atrial fibrillation, unspecified; J44.0 Chronic obstructive pulmonary disease with (acute) lower respiratory infection; E87.1 Hypo-osmolality and hyponatremia; I10 Essential (primary) hypertension; Z79.01 Long term (current) use of anticoagulants; E03.9 Hypothyroidism, unspecified; M06.9 Rheumatoid arthritis, unspecified; D50.9 Iron deficiency anemia, unspecified

== ENCOUNTER → 2019-06-15 10:45 | Outpatient (CLI) | payer MEDICARE ==
[2019-06-04 00:40] VITALS: BMI 24.5
[~2019-06-15 10:45] MED LIST: ARAVA10 MG PO; BUMETANIDE0.5 MG PO; DILTIAZEM 24HR360 M4 PO; ELIQUIS5 MG PO; FLORAJEN3 CAPS460 MG PO; FLUTICASONE PRO16 GM NASAL; HYDROCODON-ACE1 EA10 PO; IPRAT-ALBUT 0.5-3 ML INH; LEVOXYL50 MCG PO; LIPITOR20 MG PO; METHOCARBAMOL750 MG PO; NICODERM C1 PATCH .1 TRANSDERM; OMNICEF300 MG PO; PLAVIX75 MG PO; PROPAFENONE HC150 MG PO; PROTONIX40 MG PO; REQUIP3 MG PO; TOPROL XL50 MG PO; XELJANZ5 MG PO; ZITHROMAX250 MG PO
--- NOTE | 2019-06-15 11:44 | NUR ---
SURGERY CANCELLED DUE TO PT NOT BEING OFF ELIQUIS FOR 48 HOURS. PT WILL RETURN AT 1100 TOMORROW FOR A 1:00 PROCEDURE. PT INFORMED AND UNDERSTANDS. SHE IS GETTING DRESSED FOR DISCHARGE
== END | disposition home or self-care (01) ==
LOC: D.CATH 06-13 13:00
PROVIDERS: ATTEND Internal Medicine Interventional Cardiology
DX: I49.5 Sick sinus syndrome (principal); Z53.9 Procedure and treatment not carried out, unspecified reason

== ENCOUNTER → 2019-06-16 09:42 | Outpatient (CLI) | payer MEDICARE ==
[~2019-06-16] VITALS: Ht 165.1 cm; Wt 64.5 kg
--- NOTE | ~2019-06-16 | HEMODYNAMI ---
PATIENT:ZURI PAYNE MEDICAL RECORD: [id number] : 55 LOCATION:[facility] ADMISSION DATE: 06/16/19 Generatedon:06/16/201914:13 Patient name: ZURI PAYNE Patient #: [id number] SSN: : 1955 Date of study: 06/16/2019 Page: Of Hemodynamic Procedure Report Patient Data Patient Demographics Procedure consent was obtained First Name: ZURI Gender: Female Last Name: ELMER : 1955 [facility] Initial: ANGUS Age: 64 year(s) Patient #: [id number] Race: Unknown Additional ID: [id number] Contact details [address]: [address] [place] [address] rd State: [place] City: [place] Zip code: [address] Past Medical History Allergies Allergen Reaction Date Comments Reported Other allergy 06/05/2019 PCN, iodine Admission Admission Data Admission Date: 06/16/2019 Admission Time: 9:42 Procedure Procedure Types Cath Procedure Diagnostic Procedure PPM/ICD PPM Dual Implant Loop Recorder Removal Sedation Charges Moderate Sedation up to 30 minutes Procedure Description Procedure Date Procedure Date: 06/16/2019 Procedure Start Time: 13:29 Procedure Staff Name Function Dejuan Wright MD Performing Physician Frankie Rand MD Assisting physician Adi Miller RT Monitor Caden Brown RN Nurse Myah Salcedo RT Scrub Procedure Data Cath Procedure Fluoroscopy Diagnostic fluoroscopy Total fluoroscopy Time: 1.9 time: 1.9 min min Diagnostic fluoroscopy Total fluoroscopy dose: dose: 28.25 mGy 28.25 mGy Contrast Material Contrast Material Type Amount (ml) Isovue 300 0 Estimated blood loss: 5 ml Procedure Complications No complications Procedure Medications Medication Administration Route Dosage 0.9% NaCl I.V. 100 ml/hr Oxygen etCO2 Nasal cannula 2 l/min Lidocaine 1% added to field 20 Vancomycin I.V.P.B 1 g Versed I.V. 2 mg Fentanyl I.V. 100 mcg Versed I.V. 2 mg Fentanyl I.V. 50 mcg Fentanyl I.V. 50 mcg Vancomycin 1 g Irrigation Hemodynamics Rest Heart Rate: 67 (bpm) Snapshots Pre Cath Intra NCS Post Cath Vital Signs Time Heart Resp SPO2 etCO2 NIBP (mmHg) Rhythm Pain Sedation Rate (ipm) (%) (mmHg) Status Level (bpm) 13:07:15 68 18 97 22.4 178/93(140) NSR 0 (11) 10(A) , No pain 13:11:35 71 20 94 23.9 168/94(134) NSR 0 (11) 10(A) , No pain 13:15:51 70 18 94 23.1 169/94(137) NSR 0 (11) 10(A) , No pain 13:20:09 68 20 94 24.6 165/88(137) NSR 0 (11) 10(A) , No pain 13:24:25 69 19 94 24.6 161/88(128) NSR 0 (11) 10(A) , No pain 13:28:41 67 16 96 24.6 171/88(145) NSR 0 (11) 10(A) , No pain 13:33:01 67 17 93 22.4 150/88(117) NSR 0 (11) 10(A) , No pain 13:37:17 65 13 92 23.1 143/76(100) NSR 0 (11) 9(A) , No pain 13:41:33 66 14 94 20.9 134/71(101) NSR 0 (11) 9(A) , No pain 13:45:41 73 13 94 26.1 138/83(114) NSR 0 (11) 10(A) , No pain 13:49:47 78 16 93 24.6 145/97(121) Paced 0 (11) 10(A) , No pain 13:53:57 79 13 92 24.6 148/89(117) NSR 0 (11) 9(A) , No pain 13:58:07 64 27 95 24.6 153/91(122) NSR 0 (11) 9(A) , No pain 14:02:23 67 34 95 23.8 157/82(128) NSR 0 (11) 10(A) , No pain 14:06:37 65 14 95 26.8 156/87(135) NSR 0 (11) 10(A) , No pain 14:10:51 65 16 95 25.3 158/88(132) NSR 0 (11) 10(A) , No pain Medications Time Medication Route Dose Verified Delivered Reason Notes Effectiv eness by by 13:10:04 0.9% NaCl I.V. 100 Caden Caden Per ml/hr Kevin Brown physician RN RN 13:10:12 Oxygen etCO2 2 Caden Caden for low 02 Nasal l/min Lorigan Lorigan sats cannula RN RN 13:10:35 Lidocaine added 20ml Caden Caden for local 1% to vial Lorigan Lorigan anesthetic field (x2) RN RN 13:11:25 Vancomycin I.V.P.B 1 g Caden Caden Per Kevin Callejasigan physician RN RN 13:30:51 Versed I.V. 2 mg Caden Caden for Lorigan Lorigan sedation RN RN 13:30:59 Fentanyl I.V. 100 Caden Caden for mcg Lorigan Lorigan sedation RN RN 13:32:38 Versed I.V. 2 mg Caden Caden for Lorigan Lorigan sedation RN RN 13:32:46 Fentanyl I.V. 50 Caden Caden for mcg Lorigan Lorigan sedation RN RN 13:48:34 Fentanyl I.V. 50 Caden Caden for mcg Lorigan Lorigan sedation RN RN 14:08:30 Vancomycin Topical 1 g Caden Caden used for Irrigation (added Lorigan Lorigan procedure to RN field crop harvest worker) Procedure Log Time Note 12:57:09 Caden Brown RN sent for patient. Start room use. 12:57:10 Time tracking: Regular hours (M-F 7:00 - 5:00) 12:57:14 Plan of Care:Hemodynamics will remain stable., Cardiac rhythm will remain stable., Comfort level will be maintained., Respiratory function will remain adequate., Patient/ family verbilizes understanding of procedure., Procedure tolerated without complication., Recovers from procedure without complications.. 12:57:49 Patient received from Pre/Post Procedure Room to CCL 3 Alert and oriented. Tansferred to table in Supine position. 12:57:51 Warm blankets applied, and toby hugger turned on for patient comfort. 12:57:52 Signed procedure consent form obtained from patient. 12:57:53 Correct patient and procedure confirmed by team. 12:57:53 ECG and BP/O2 sat monitors applied to patient. 13:06:07 Vital chart was started 13:06:08 Baseline sample Acquired. 13:06:11 Rhythm: sinus rhythm 13:06:13 Full Disclosure recording started 13:06:21 H&P Date Dictated: 06/14/2019 Within 30 days and on chart., H&P Addendum completed by physician on day of procedure. (MUST COMPLETE FOR ALL OUTPATIENTS). 13:06:21 Pre-procedure instructions explained to patient. 13:06:22 Pre-op teaching completed and patient verbalized understanding. 13:06:23 Family in patients room. 13:06:25 Patient NPO since Midnight. 13:06:27 Is the patient allergic to Iodine/contrast media? No. 13:06:29 Is patient on blood thinner?Yes 13:06:31 ACC The patient was administered the following blood thiners within the last 24 hours: ACCPlavix 13:06:36 Patient diabetic? No. 13:06:40 Previous problem with sedation/anesthesia? No ? 13:06:41 Snore? Yes 13:06:42 Sleep apnea? No 13:06:43 Deviated septum? No 13:06:44 Opens mouth fully? Yes 13:06:45 Sticks out tongue? Yes 13:06:46 Airway obstruction? No ? 13:06:48 Dentures? No ? 13:06:54 Patient pain scale 0/10 ?. 13:07:02 IV patent on arrival in right forearm with 0.9% NaCl at O. 13:07:04 Lab results completed and on chart. 13:07:07 Left chest area was prepped with chlora-prep and draped in sterile fashion 13:07:08 Alarms reviewed by R. N. 13:07:09 Sharps counted by scrub and verified by R.N. 13:07:19 [employer] hospital insurance representative NIKITA UNDERWOODOE present for procedure. 13:10:04 0.9% NaCl 100 ml/hr I.V. was administered by Caden Brown RN; Per physician; Verbal order read back and verified. 13:10:12 Oxygen 2 l/min etCO2 Nasal cannula was administered by Caden Brown RN; for low 02 sats; Verbal order read back and verified. 13:10:35 Lidocaine 1% 20ml vial (x2) added to field was administered by Caden Brown RN; for local anesthetic; Verbal order read back and verified. 13:11:25 Vancomycin 1 g I.V.P.B was administered by Caden Brown RN; Per physician; Verbal order read back and verified. 13:27:14 Pre sharps counted by scrub and verified by RN: Sutures: 7; Sponges: 5; Stick needles: 2; Skin needles: 2; Blade: 1; Cautery: 1 13:: Grounding pad site Left thigh. 13::22 Grounding pad site free from injury. 13::28 Physician arrived 13:: --------ALL STOP TIME OUT------ ::29 Final Timeout: patient, procedure, and site verified with staff and physician. All members of the team are in agreement. 13:27:33 Left chest site verified by team. 13:27:37 Fire Safety Assessment: A--An alcohol-based skin anteseptic being used preoperatively., B--The operative or invasive procedure is being performed above the xiphoid process or in the oropharynx., C--Open oxygen or nitrous oxide is being used. 13:27:41 Physical assessment completed. ASA score P 2 - A patient with mild systemic disease as per Dejuan Wright MD. 13:27:45 Sedation plan: IV Moderate Sedation Medication:Versed, Fentanyl 13:29:43 Lidocaine 1% was administered to left subclavicular area by Frankie Rand MD . 13:29:59 Incision made to left subclavicular area. 13:30:51 Versed 2 mg I.V. was administered by Caden Brown RN; for sedation; Verbal order read back and verified. 13:30:59 Fentanyl 100 mcg I.V. was administered by Caden Brown RN; for sedation; Verbal order read back and verified. 13:31:21 Use device set SUNSHINE PPM 13:31:25 Mepilex Dressing (561331) opened to sterile field. 13:31:26 Cautery Pushbutton Pencil opened to sterile field. 13:31:27 Cautery Tip Ag Equipment Field Service Technician opened to sterile field. 13:31:29 2-0 Ticron Multipack ([id number]) opened to sterile field. 13:31:29 3-0 Vicryl Single Pack [id number] opened to sterile field. 13:31:29 5-0 Monocryl PS2 Y495G opened to sterile field. 13:31:39 Medtronic 4074-52 PPM Lead opened to sterile field. 13:31:39 Medtronic 4574-45 PPM Lead opened to sterile field. 13:31:[address] Generator [id number] opened to sterile field. 13:32:11 Generator pocket made/opened. 13:32:38 Versed 2 mg I.V. was administered by Caden Brown RN; for sedation; Verbal order read back and verified. 13:32:46 Fentanyl 50 mcg I.V. was administered by Caden Brown RN; for sedation; Verbal order read back and verified. 13:35:03 Left subclavian vein accessed with 7Fr Peel Away Sheath. 13:35:07 Left subclavian vein accessed with 7Fr Peel Away Sheath. 13:43:11 Ventricular lead inserted and advanced. 13:43:13 Peel-a-way sheath was split and removed. 13:43:16 Atrial lead inserted and advanced. 13:48:34 Fentanyl 50 mcg I.V. was administered by Caden Brown RN; for sedation; Verbal order read back and verified. 13:52:08 Ventricular lead positioned. 13:52:11 Ventricular lead tested. 13:52:14 Atrial lead positioned. 13:52:17 Atrial lead tested. 13:53:02 Ventricular lead attachment was completed with 2-0 ticron. 13:53:18 Atrial lead attachment was completed with 2-0 ticron. 13:53:25 PPM Dual was attached to lead(s) and inserted into pocket. 13:54:00 Device pocket was irrigated with Vancomycin. 13:54:07 Generator was sutured in place with 2-0 ticron. 13:54:31 Parameters-- Generator: Mode: DDDR. Lower Rate: 60bpm. Upper Rate: 120bpm. 13:54:54 Parameters--Ventricular P/R Wave: 4.6mV. Current: 0.2mA; Threshold: 0.2V; Impedence: 1173OHMS. 13:55:37 Parameters--Atrial P/R Wave: 1.6mV. Current: 0.9mA; Threshold: 0.5V; Impedence: 461OHMS. 13:55:48 Subcutaneous closure was completed with 3-0 vicryl. 13:57:53 Skin closure was completed with 5-0 monocryl. 13:59:17 Lt Chest incision was dressed with 4 x 4 and Tegaderm. 14:02:59 Local anesthetic to Chest area with Lidocaine 1% by Frankie Rand MD.ADDITIONAL ACCESS 14:03:33 Incision made to mid chest. 14:03:57 LINQ DEVICE REMOVED.. 14:04:07 Skin closure was completed with 5-0 monocryl. 14:04:16 Procedure ended.(Physican Out) 14:04:34 Fluoroscopy time 01.90 minutes. 14:04:39 Fluoroscopy dose: 28.25 mGy 14:04:39 Flurop Dose total: 28.25 14:07:29 Dose Area Product 380.12 mGy/cm. 14:07:34 Contrast amount:Isovue 300 0ml. 14:07:37 Sharps counted by scrub and verified by R.N. 14:07:59 Post sharps counted by scrub and verified by RN: Sutures: 7; Sponges: 5; Stick needles: 2; Skin needles: 2; Blade: 1; Cautery: 1 14:08:05 Insertion/operative site no bleeding no hematoma. 14:08:30 Vancomycin Irrigation 1 g Topical (added to field) was administered by Caden Brown RN; used for procedure; Verbal order read back and verified. 14:09:00 4X4 AND TEGADERM APPLIED TO LINQ REMOVAL SITE MID CHEST.. 14:09:17 Post-procedure physical assessment completed. ASA score P 2 - A patient with mild systemic disease as per Dejuan Wright MD. 14:09:20 Post procedure rhythm: unchanged. 14:09:23 Estimated blood loss: 5 ml 14:09:26 Post procedure instruction explained to patient.Patient verbalizes understanding. 14:09:26 Patient needs reinforcement of post procedure teaching. 14:09:46 Procedure type changed to Cath procedure, Diagnostic procedure, PPM/ICD, PPM Dual Implant, Loop Recorder Removal, Sedation Charges, Moderate Sedation up to 30 minutes 14:09:47 Procedure and supply charges have been captured, reviewed, submitted and are correct. 14:09:50 Procedure Complication : No complications 14:10:07 Vital chart was stopped 14:10:09 Operative report dictated upon procedure completion. 14:10:09 See physician's report for complete and final results. 14:10:13 Report given to Pre/Post Procedure Room. 14:10:16 Patient transfered to Pre/Post Procedure Room with Stretcher. 14:12:45 End room use (Document Last) Device Usage Item Name Manufacture Quantity Catalog Hospital Part Current Minima l Lot# / Number Charge Number Stock Stock Serial# Code Mepilex Cardinal 1 [id number] 902304 [id number] [id number] [address] [facility] ([id number]) Cautery Microtek 1 [id number] 023767 00929 032930 5 Pushbutton [employer] Pencil Cautery Tip Microtek 1 [id number] 991850 880415 250774 5 Ag Equipment Field Service Technician [employer] 2-0 Ticron Ethicon 2 [id number] 883824 73759 696342 5 Multipack ([id number]) 3-0 Vicryl Ethicon 1 [id number] 343938 532570 492490 5 Single Pack [id number] 5-0 Monocryl Ethicon 1 [id number] 831079 753756 469793 5 PS2 Y495G Medtronic Medtronic 1 4074-52 098253 942446 776528 5 [id number] 4074-52 PPM EXP Lead 01-17-21 Medtronic Medtronic 1 4574-45 290948 040871 761546 5 [id number] 4574-45 PPM EXP Lead 01-05-21 Medtronic Medtronic 1 [id number] 600976 [id number] 422148 [id number] EXP Generator 10-18-20 [id number] Signature Audit [place] Stage Time Signature Unsigned Intra-Procedure 06/16/2019 Adi Miller 2:12:20 PM RT(R) Intra-Procedure 06/16/2019 Caden 2:12:41 PM Kevin BENNETT Intra-Procedure 06/16/2019 Dejuan Bruno 2:13:24 PM Pedro [facility] [address] [place] [address]
[2019-06-16 10:51] VITALS: BP 171/93; Ht 165.1 cm; Wt 64.5 kg
[2019-06-16 11:24] LABS: CALC OSMOLALITY 274 mosm/kg (275-300); CALCIUM 9.3 mg/dL (8.5-10.1); CARBON DIOXIDE 26.7 mmol/L (21.0-32.0); CHLORIDE - SERUM 102 mmol/L (98-107); CREATININE - SERUM 0.8 mg/dL (0.6-1.3); GLUCOSE 91 mg/dL (74-106); SODIUM 138 mmol/L (136-145); UREA NITROGEN 11 mg/dL (7-18); eGFR NON AFRICAN AMERICAN 76 mL/min (90-120)
[2019-06-16 11:28] LABS: INR 0.9 (0.85-1.17); PROTIME 12.1 SECONDS (11.6-15.0)
[2019-06-16 11:29] LABS: APTT 32.6 SECONDS (22.8-39.4)
--- NOTE | 2019-06-16 14:30 | NUR ---
PT RECEIVED VIA STRETCHER FROM INSTANT POWDER SUPERVISOR POST PACEMAKER PLACEMENT. PT AWAKE AND ALERT, DENIES PAIN OR DISCOMFORT. PT HAS ONE SMALL DRESSING IN MIDDLE AREA OF CHEST WHERE LINQ DEVICE WAS REMOVED. NO BLEEDING OR SWELLING NOTED. 4X4 MEPILIX DRESSING TO UPPER L CHEST, NO BLEEDING OR SWELLING NOTED. PT'S R ARM IN SLING. IV PATENT INFUSING TO R ARM VIA ORDERS. PT PLACED ON CARDIAC MONITORS, HR PACED AT 65, BP 160/78, RR 17, SAT 93 ON ROOM AIR. CALL LIGHT IN REACH. FAMILY AT BS
--- NOTE | 2019-06-16 14:45 | NUR ---
PT RESTING W/O COMPLAINTS. HR 61. NO SWELLING OR BLEEDING NOTED AROUND DRESSINGS. CALL LIGHT IN REACH
--- NOTE | 2019-06-16 15:29 | NUR ---
PT AWAKE AND ALERT, DENIES PAIN OR DISCOMFORT. HR 64, BP 150/81, RR 13. HOB ELEVATED, SANDWICH TRAY SERVED. PT DENIES OTHER NEEDS AT THIS TIME.
--- NOTE | 2019-06-16 16:07 | NUR ---
DENIES NEEDS. R UPPER CHEST PACEMAKER SITE DRESSING MEPILEX CDI, NO S/S BLEEDING NOTED. HR PACED, 62, BP 176/65, SAT 94%.
--- NOTE | 2019-06-16 16:15 | NUR ---
3ML AIR RELEASED FROM TR BAND. R WRIST WITHOUT S/S BLEEDING/HEMATOMA. BP 135/69, HR NSR 71, SAT 98% RA.
--- NOTE | 2019-06-16 17:03 | NUR ---
IV DC TIP INTACT. MONITORING DC. DC INSTRUCTIONS REVIEWED INCLUDING RX FOR NORCO, PT VERBALIZES UNDERSTANDING. AMBULATED TO REST ROOM. DRESSING W DAUGHTERS ASSISTANCE.
--- NOTE | 2019-06-16 17:16 | NUR ---
DC HOME VIA WHEELCHAIR TO PRIVATE CAR W DAUGHTERS, GRANDDAUGHTERS, ETC. PT HAS ALL BELONGINGS.
--- NOTE | 2019-06-19 12:18 | OP ---
PATIENT NAME: YOANA FLORIAN MEDICAL RECORD: [id number] :55 LOCATION:D.CAT ADMISSION DATE: SURGEON: ILDEFONSO GARNICA MD DATE OF OPERATION: 06/16/2019 PROCEDURE: Lead portion of permanent pacemaker placement. INDICATION: Sick sinus syndrome with pauses greater than 6 seconds. SURGEON: Frankie Rand MD DESCRIPTION OF PROCEDURE: After left subclavian cannulated via modified Seldinger technique via Dr. Rand, first under fluoroscopic guidance, I placed the RV lead in the RV apex without difficulty. After adequate R waves and thresholds were obtained under fluoroscopic guidance, placed the right atrial lead in the right atrial appendage without difficulty. After adequate P waves and thresholds were obtained, the leads were then attached to appropriate poles of the generator and the pocket was closed via Dr. Rand. IMPRESSION: Successful lead portion of permanent pacemaker placement on Yoana Florian. ESTIMATED BLOOD LOSS: Minimal. DISPOSITION: To the floor, stable. TRANSINT:[id number] Voice Confirmation ID: [id number] DOCUMENT ID: [id number] ILDEFONSO GARNICA MD at 1218 CC: [id number] DICTATION DATE: 06/16/19 1359 ONCOLOGY RN: 06/16/19 2201 DEP CLI 06/16/19 [id number] [place] [address]
--- NOTE | 2019-06-20 14:05 | OP ---
PATIENT NAME: ZURI PAYNE MEDICAL RECORD: [id number] :55 LOCATION:D.CAT ADMISSION DATE: SURGEON: FERMIN GONSALEZ MD DATE OF OPERATION: 06/16/2019 PREOPERATIVE DIAGNOSES: 1. Sick sinus syndrome with pauses. 2. Hypertension. 3. Hypercholesterolemia. 4. Tobacco dependence syndrome. POSTOPERATIVE DIAGNOSES: 1. Sick sinus syndrome with pauses. 2. Hypertension. 3. Hypercholesterolemia. 4. Tobacco dependence syndrome. PROCEDURE: 1. Left subclavian vein dual lead pacemaker placement. 2. Fluoroscopic interpretation. 3. LINQ removal. SURGEON: Fermin Gonsalez MD CO-SURGEON: Dejuan Ponce MD REPORT OF PROCEDURE: The patient's left chest was prepped and draped in sterile fashion. A 20 mL of 1% lidocaine with epinephrine was infused into the surrounding tissues. A transverse incision was made on the left superior lateral chest and a subcutaneous pouch was made over the pectoral fascia. [place] were used to cannulate the left subclavian veins times 2 and guidewires were advanced with ease. Fluoro was used to note that these wires were in good position in the venous system. A dilator trocar device was then placed over each wire and the wire and dilator were removed. The leads were advanced through the trocars and at this point, Dr. Ponce positioned the leads appropriately in atrium and ventricle. With the leads were noted to be functioning appropriately, then they were sutured into place with 2-0 Ti-Cron. The pacemaker was affixed to the leads and placed into the subcutaneous pouch. We then sutured the pacemaker to the pectoral fascia using interrupted 2-0 TiCron. We irrigated out the wound bed with antibiotic solution. The subcutaneous tissues were reapproximated with interrupted 3-0 Vicryl and the skin was closed with running subcutaneous 5-0 Monocryl. We then placed 10 mL of 1% lidocaine with epinephrine around the LINQ device. A skin incision was made on this most medial aspect and the LINQ device was completely removed. We then closed the subcutaneous tissues with a single interrupted 4-0 Monocryl. COMPLICATIONS: None. CONDITION: Stable. ANESTHESIA: Local MAC. BLOOD LOSS: Minimal. TRANSINT:[id number] Voice Confirmation ID: [id number] DOCUMENT ID: [id number] OPERATIVE REPORT [id number] ZURI PAYNE FERMIN GONSALEZ MD at 1405 CC: [id number] DICTATION DATE: 06/16/191406 EMPLOYMENT SPECIALIST/PROGRAM MANAGER: 06/16/19 2214 DEP CLI 06/16/19 [id number] [place] [address]
== END | disposition home or self-care (01) ==
LOC: D.CATH 09:42
PROVIDERS: ATTEND Internal Medicine Interventional Cardiology
DX: I49.5 Sick sinus syndrome (principal); I10 Essential (primary) hypertension; E78.00 Pure hypercholesterolemia, unspecified; F17.210 Nicotine dependence, cigarettes, uncomplicated; I25.10 Atherosclerotic heart disease of native coronary artery without angina pectoris; E78.5 Hyperlipidemia, unspecified; I48.0 Paroxysmal atrial fibrillation